=== PATIENT | male | born 1955 | race Caucasian/White ===

== ENCOUNTER 2016-11-10 16:02 | Observation (INO) | payer OTHER ==
[~2016-11-10] VITALS: Ht 154.9 cm; Wt 73.3 kg
[~2016-11-10 16:02] MED LIST: AMBIEN CR12.5 MG PO; FLEXERIL10 MG PO; HYDROCODON-ACE1 EAC7 PO; LEVAQUIN500 MG PO; MAGNESIUM250 MG PO; MOBIC15 MG PO; NEURONTIN400 MG PO; ROBITUSSIN AC,T10 ML PO; VITAMIN D1000 INTUN PO
[2016-11-10 16:24] LABS: HEMATOCRIT 33.4 % (38.0-50.0); MCH 28.7 PG (29.0-34.0); MCV 81.9 FL (86-99); MEAN PLAT.VOLUME 9.8 uM^3 (9.0-12.4); PLATELET COUNT 350 K/uL (156-360); RBC DIS.WIDTH-CV 12.9 % (11.8-14.6); RBC DIS.WIDTH-SD 36.9 % (39-53); RED BLOOD COUNT 4.08 M/uL (4.00-5.50); WHITE BLOOD COUNT 8.3 K/uL (4.1-10.2)
[2016-11-10 16:37] LABS: CHLORIDE 103 mEq/L (99-109); POTASSIUM 3.8 mEq/L (3.7-5.4); SODIUM 140 mEq/L (136-147)
[2016-11-10 16:39] LABS: GLUCOSE 88 mg/dL (70-99)
[2016-11-10 16:40] LABS: ANION GAP 10 MEQ/L (2-14)
[2016-11-10 16:43] LABS: GFR ESTIMATE (CALCULATED) > 59 mL/min/
[2016-11-10 16:44] LABS: UREA NITROGEN (BUN) 14 mg/dL (9-23)
[2016-11-10 16:51] LABS: ADD MIUA? NO; BILIRUBIN NEGATIVE; BLOOD NEGATIVE; COLOR STRAW ((YELLOW)); GLUCOSE (STRIP) NEGATIVE; KETONES NEGATIVE; LEUKOCYTES NEGATIVE; NITRITE NEGATIVE; PROTEIN (STRIP) NEGATIVE; SPECIFIC GRAVITY 1.004 (1.000-1.030); UROBILINOGEN 0.2 MG/DL (0.2-1.0)
[2016-11-10] MEDS ORDERED: FLEXERIL5 MG PO (16:51)
[2016-11-10] MEDS ORDERED: PANTOPRAZOLE SO40 MG PO (16:53)
[2016-11-10 16:54] LABS: TOTAL BILIRUBIN 1.5 mg/dL (0.0-1.0)
[2016-11-10 16:55] LABS: ALKALINE PHOSPHATASE 84 IU/L (3-129)
[2016-11-10 16:58] LABS: DIRECT BILIRUBIN 0.4 mg/dL (0.0-0.3)
[2016-11-10 16:59] LABS: LIPASE 20 U/L (1.0-51.0)
[2016-11-10] MEDS ORDERED: VITAMIN D5000 UNI1 PO (23:02)
[2016-11-10] MEDS ORDERED: VITAMIN E100 UNIT PO (23:02)
[2016-11-10] MEDS ORDERED: FISH OIL 1,0001 EA10 PO (23:02)
[2016-11-10] MEDS ORDERED: CALCIUM 500 MG1 EACH PO (23:03)
[2016-11-11 02:39] VITALS: BP 143/82
[2016-11-11 03:04] VITALS: BP 108/58
[2016-11-11 03:36] LABS: HEMATOCRIT 31.4 % (38.0-50.0); MCH 28.3 PG (29.0-34.0); MCHC 34.4 G/DL (30.0-36.0); MCV 82.2 FL (86-99); MEAN PLAT.VOLUME 10.2 uM^3 (9.0-12.4); PLATELET COUNT 320 K/uL (156-360); RBC DIS.WIDTH-CV 13.3 % (11.8-14.6); RBC DIS.WIDTH-SD 37.7 % (39-53); RED BLOOD COUNT 3.82 M/uL (4.00-5.50); WHITE BLOOD COUNT 6.9 K/uL (4.1-10.2)
[2016-11-11 08:40] VITALS: BP 114/77
[2016-11-11 16:11] VITALS: BP 131/81
[2016-11-11 20:50] VITALS: BP 137/87
[2016-11-11 23:20] VITALS: BP 125/80
[2016-11-12 05:29] VITALS: BP 138/81
[2016-11-12 09:10] LABS: MCH 28.5 PG (29.0-34.0); MCHC 34.2 G/DL (30.0-36.0); MCV 83.3 FL (86-99); PLATELET COUNT 311 K/uL (156-360); RBC DIS.WIDTH-CV 13.3 % (11.8-14.6); RBC DIS.WIDTH-SD 40.5 % (39-53); RED BLOOD COUNT 3.96 M/uL (4.00-5.50)
[2016-11-12 09:34] LABS: ANION GAP 10 MEQ/L (2-14); CHLORIDE 106 MEQ/L (99-109); GFR ESTIMATE (CALCULATED) > 59 mL/min/; GLUCOSE 97 mg/dL (70-99); IRON 41 MCG/DL (35-150); MAGNESIUM 1.8 mg/dl (1.3-2.7); POTASSIUM 4.2 MEQ/L (3.7-5.4); SAMPLE HEMOLYSIS CHECK 0; SAMPLE ICTERIC CHECK 0; SAMPLE LIPEMIA CHECK 0; SODIUM 141 MEQ/L (136-147); UREA NITROGEN (BUN) 7 mg/dL (9-23)
[2016-11-12 09:51] LABS: FERRITIN 11 NG/ML (22-322)
== END 2016-11-12 10:08 | disposition home or self-care (01) ==
LOC: EME 16:02 → EDOF 11-11 00:19 → 5WEST 11-11 00:19 → EDOF 11-11 00:19 → 5WEST 11-11 02:31
PROVIDERS: Hospitalist; Internal Medicine Gastroenterology; Nurse Practitioner Family
DX: K92.2 Gastrointestinal hemorrhage, unspecified (principal); K22.70 Barrett's esophagus without dysplasia; D64.9 Anemia, unspecified; K21.9 Gastro-esophageal reflux disease without esophagitis; Z87.19 Personal history of other diseases of the digestive system; Z86.010 Personal history of colon polyps; R10.31 Right lower quadrant pain; Z79.899 Other long term (current) drug therapy; G89.29 Other chronic pain; M54.9 Dorsalgia, unspecified; R03.0 Elevated blood-pressure reading, without diagnosis of hypertension; Z80.0 Family history of malignant neoplasm of digestive organs; Z80.1 Family history of malignant neoplasm of trachea, bronchus and lung; Z83.49 Family history of other endocrine, nutritional and metabolic diseases; Z83.3 Family history of diabetes mellitus
CPT/HCPCS: 74177; 80048; 80048 91; 80076; 81003; 82728; 83540; 83690; 83735; 84466; 85027; 86850; 86900; 86901; 99281; 99284; C9113; G0378; J1170; J2270; J2405; J7030